=== PATIENT | female | born 1980 ===

== ENCOUNTER 2023-05-29 07:56 | Inpatient (IN) ==
[2023-05-29] MEDS ORDERED: HYDROcodone/ACETAMIN 5/325 mg TAB PO PRN (09:19)
[2023-05-30 09:10] VITALS: BP 109/77
== END 2023-05-30 11:50 | disposition home or self-care (01) | DRG 880 ==
LOC: MEDTELE 07:56
PROVIDERS: ADMIT Psychiatry & Neurology Neurology; ATTEND Internal Medicine